=== PATIENT | male | born 1940 | race Caucasian/White ===

== ENCOUNTER 2019-09-22 05:26 | Inpatient (IN) ==
[2019-09-22 06:10] LABS: BASO# 0.03 X1000 (0.0-0.2); BASO% 0.1 % (0.0-0.8); EOS# 0.02 X1000 (0.0-0.7); EOS% 0.1 % (0.0-10.0); HEMATOCRIT 41.6 % (42.0-52.0); HEMOGLOBIN 13.4 g/dL (14.0-18.0); IMM GRAN# 0.15 X1000 (0.0-0.04); IMM GRAN% 0.7 % (0.0-0.5); LYMPH# 0.91 X1000 (1.2-3.4); LYMPH% 4.1 % (20.5-51.1); MCH 30.2 PG (27-31); MCHC 32.2 g/dL (33-37); MCV 93.9 FL (81-99); MONO# 1.29 X1000 (0.11-0.59); MONO% 5.8 % (1.7-9.3); MPV 8.8 FL (7.4-10.4); NEUT% 89.2 % (42.2-75.2); PLT 277 X1000 (130-400); RBC 4.43 XMIL (4.7-6.1); RDW 19.2 % (11.5-14.5)
--- NOTE | 2019-09-22 06:20 | Diag Imaging Result Doc PS360 ---
CT HEAD W/O CONTRAST - 09/22/2019 INDICATION: ams COMPARISON: Brain MRI 08/20/2017 FINDINGS: There is a stable large old infarction at the posterior right cerebral hemisphere. Stable moderately extensive periventricular white matter chronic microvascular ischemia. No intracranial mass or hemorrhage. Stable moderate overall atrophy. The skull is intact. The sinuses, mastoids, and middle ears are clear. IMPRESSION: No acute process. No visible change from prior. This exam was performed using automated exposure control, adjustment of mA or kV according to patient size, and/or use of iterative reconstruction technique Electronically signed by Loco Morales 09/22/2019 6:17 AM
[2019-09-22 06:32] LABS: AGAP 14; ALB/GLOB RATIO 0.9; ALKALINE PHOSPHATASE 71 U/L (32-122); BUN 15 mg/dL (8-22); CALCIUM 8.1 mg/dL (8.8-10.2); CHLORIDE 100 mmol/L (98-107); COSMO 281; ESTIMATED GFR > 60; GLUCOSE 108 mg/dL (70-104); GOT 15 U/L (10-34); GPT 19 U/L (10-44); POTASSIUM 4.5 mmol/L (3.5-5.1); SODIUM 140 mmol/L (136-145); TCO2 26 mmol/L (25-35); TOTAL BILIRUBIN 1.26 mg/dL (0.20-1.00); TOTAL PROTEIN 6.2 g/dL (6.3-8.3)
--- NOTE | 2019-09-22 06:34 | Diag Imaging Result Doc PS360 ---
CHEST-1 VIEW - 09/22/2019 INDICATION: cough COMPARISON: 02/25/2018 FINDINGS: Lung volumes are much lower. There is moderate focal infiltrate at the right upper lobe. There is cardiomegaly. No edema. No pneumothorax or pleural effusion. IMPRESSION: Right upper lobe infiltrate compatible with bronchopneumonia. Electronically signed by Loco Morales 09/22/2019 6:31 AM
[2019-09-22 06:52] LABS: INR 2.34; PROTIME 26.2 Seconds (11.0-16.0)
[2019-09-22 06:53] LABS: PTT 43.8 Seconds (22.3-41.8)
[2019-09-22] MEDS ORDERED: ZOSYN 3.375 GM in NS 50 ML IV ONE (06:56)
[2019-09-22 07:05] LABS: MAGNESIUM 1.7 mg/dL (1.5-2.7)
[2019-09-22 07:14] LABS: URINE SOURCE CLEAN CATCH
[2019-09-22 07:21] LABS: BILIRUBIN URINE NEGATIVE (NEGATIVE); BLOOD URINE NEGATIVE (NEGATIVE); COLOR ORANGE; GLUCOSE URINE NEGATIVE (NEGATIVE); KETONE URINE NEGATIVE (NEGATIVE); LEUKOCYTES URINE NEGATIVE (NEGATIVE); NITRITE URINE NEGATIVE (NEGATIVE); PH URINE 7.5; PROTEIN URINE TRACE mg/dL (NEGATIVE); SP GRAVITY URINE 1.026; TURBIDITY URINE CLEAR (CLEAR); UROBILINOGEN URINE 6 mg/dL (NORMAL)
--- NOTE | 2019-09-22 07:27 | EKG Report ---
Test Performed on : 09/22/2019 06:46:18 AM Test Reason : ams Blood Pressure : / mmHG Vent. Rate : 097 BPM Atrial Rate : 091 BPM P-R Int : 000 ms QRS Dur : 080 ms QT Int : 372 ms P-R-T Axes : 000 010 020 degrees QTc Int : 472 ms Atrial fibrillation. Abnormal ECG When compared with ECG of 11-SEP-2015 20:26, Vent. rate has increased BY 45 BPM QT has lengthened Unconfirmed Result
[2019-09-22] MEDS ORDERED: NS 1,000 ML IV ONE ×2 (07:34→16:16)
[2019-09-22 07:37] LABS: UR EPITHELIAL CELLS <10 /HPF (<10); URINE BACTERIA NEGATIVE /HPF; URINE RBC <10 /HPF (<10); URINE WBC <10 /HPF (<10); URINE YEAST NONE SEEN
[2019-09-22 07:38] LABS: URINE CASTS NONE SEEN; URINE CRYSTALS NONE SEEN; URINE SMALL ROUND CELLS NONE SEEN
--- NOTE | 2019-09-22 08:08 | PROVIDER DOCUMENTATION ---
This chart was entered by Sahra Ricardo Scribe, acting as scribe for Arik Chandler MD. HPI-General Adult - General Chief Complaint: Altered Mental Status Stated Complaint: AMS HYPOTENSION Time Seen by Provider: 09/22/19 05:36 Source: EMS Allergies/Adverse Reactions: Patient Allergies Allergy/AdvReac Type Severity Reaction Status Date / Time No Known Allergies Allergy Verified 09/22/19 05:57 Home Medications: Home Medication List Medication Instructions Recorded Confirmed Last Taken Type Levetiracetam [Keppra] 1,000 mg PO BID 09/10/15 09/22/19 09/10/15 08:00 History Acetaminophen 325 mg PO Q4HR PRN 09/22/19 09/22/19 Unknown History Bisacodyl [Dulcolax] 10 mg .ROUTE DAILY PRN 09/22/19 09/22/19 Unknown History Cetirizine HCl [Zyrtec] 10 mg PO DAILY 09/22/19 09/22/19 Unknown History Cholecalciferol (Vitamin D3) 2,000 unit PO DAILY 09/22/19 09/22/19 Unknown History [Vitamin D3] Clonidine [Catapres] 0.1 mg PO Q6HR PRN 09/22/19 09/22/19 Unknown History Fluoxetine [Prozac] 10 mg PO DAILY 09/22/19 09/22/19 Unknown History Furosemide [Lasix] 40 mg PO DAILY 09/22/19 09/22/19 Unknown History Gabapentin [Neurontin] 300 mg PO BID 09/22/19 09/22/19 Unknown History Guaifenesin [Adult Tussin Chest 5 ml PO Q4H PRN PRN 09/22/19 09/22/19 Unknown History Congestion] Hydrocodone/Acetaminophen 1 tab PO Q4H PRN PRN 09/22/19 09/22/19 Unknown History [Hydrocodone-Acetamin 5-325 mg] Loperamide [Imodium] 2 mg PO Q8H PRN PRN 09/22/19 09/22/19 Unknown History Lorazepam [Ativan] 0.5 mg PO QPM 09/22/19 09/22/19 Unknown History Potassium Chloride 20 meq PO BID 09/22/19 09/22/19 Unknown History Prednisone 20 mg PO DAILY 09/22/19 09/22/19 Unknown History Warfarin [Coumadin] 3.5 mg PO QPM 09/22/19 09/22/19 Unknown History - History of Present Illness -Gen Adult Nature of Presenting Problems: 79yom presents to ED by EMS from [facility] cc F/C/AMS/Hypotension according to EMS. Pt is nontoxic A&Ox3 upon exam. Pt has hx of Afib and prostate cancer. Location of Pain/Injury: reports: generalized Quality of Pain: reports: aching Severity: reports: mild Onset/Duration: reports: this morning Timing: reports: still present Context/Activities at Onset: reports: light activity Modifying Factors: improves with: nothing Associated Symptoms: reports: fever/chills Similar Symptoms Previously?: No Recently seen or treated by another doctor?: No Review of Systems - Adult - REVIEW OF SYSTEMS - ADULT ROS:: ROS per EMS Constitutional: reports: see HPI, chills, fever. denies: fatique Eyes: reports: no symptoms reported Ears, Nose, Mouth & Throat: reports: no symptoms reported Cardiovascular: reports: see HPI, other (hypotension) Respiratory: reports: see HPI. denies: cough, shortness of breath Gastrointestinal: reports: see HPI. denies: diarrhea, nausea, vomiting Genitourinary: reports: no symptoms reported Musculoskeletal: reports: no symptoms reported Integumentary: reports: no symptoms reported Neurological: reports: see HPI, other (AMS) Psychiatric: reports: no symptoms reported Endocrine: reports: no symptoms reported Hematologic/Lymphatic: reports: no symptoms reported Allergic/Immunologic: reports: no symptoms reported All Other Systems: Reviewed and Negative Past History - Adult - PAST MEDICAL HISTORY-ADULT Review of Records: reports: Old Records Reviewed, Nursing Assessment Review, Medications Reviewed, Social history reviewed & non-contributory. Major Childhood Illnesses: reports: denies history Cardiovascular: reports: A-Fib, blood clots Respiratory: reports: denies history Gastrointestinal: reports: denies history Obstetrical/Gynecological: reports: denies history Genitourinary: reports: denies history Musculoskeletal: reports: cancer (prostate) Neurological: reports: denies history Endocrine/Immune: reports: denies history Other Conditions: reports: denies history - IMMUNIZATION STATUS Childhood Immunizations: See Nurse Assessment Flu Vaccine: See Nurse Assessment - FAMILY HISTORY Family History: reviewed, not pertinent Physical Exam-General - PHYSICAL EXAM-ADULT Initial Vital Signs Reviewed: Yes - CONSTITUTIONAL General Appearance: appears well, alert, no apparent distress. negative: anxious, combative - EYES Eyes: PERRL/EOMI, pink conjunctivae. negative: photophobia - HEAD, EARS, NOSE, MOUTH & THROAT HENMT: normocephalic/atraumatic, moist mucous membranes. negative: angioedema - NECK Neck: supple, normal inspection - RESPIRATORY Respiratory: chest non-tender, lungs clear, normal breath sounds. negative: rhonchi - CARDIOVASCULAR Cardiovascular: normal peripheral pulses, no edema, tachycardia. negative: bradycardia - GASTROINTESTINAL (ABDOMEN) Abdominal Exam: normal bowel sounds, non tender, soft. negative: rebound - LYMPHATIC Lymphatic: no adenopathy. negative: enlargement - MUSCULOSKELETAL Back Exam: normal inspection, no CVA tenderness, no vertebral tenderness Extremity: normal inspection, normal capillary refill. negative: deformity - SKIN Integumentary: normal color. negative: diaphoresis, jaundice, rash - NEUROLOGIC Neurologic: head of academic technology II-XII nml as tested, grossly normal, no motor/sensory deficits - PSYCHIATRIC Psych/Mental Status: normal mood/affect, oriented x 3. negative: anxious, disheveled Progress - PLAN OF CARE/RESULTS Progress/Plan/Lab Results: Vital Signs - 8 hr 09/22/19 05:26 Temperature 98.1 F Pulse Rate 100 H Respiratory Rate 20 Blood Pressure 106/58 O2 Sat by Pulse Oximetry 94 L 09/22/19 05:45 Influenza Screen - Final Nasopharyngeal Laboratory Results - last 24 hr 09/22/19 09/22/19 09/22/19 05:45 05:45 05:45 WBC 22.10 H RBC 4.43 L Hgb 13.4 L Hct 41.6 L MCV 93.9 MCH 30.2 MCHC 32.2 L RDW Std Deviation 19.2 H Plt Count 277 MPV 8.8 Immature Gran % (Auto) 0.7 H Neut % (Auto) 89.2 H Lymph % (Auto) 4.1 L Garrett % (Auto) 5.8 Eos % (Auto) 0.1 Baso % (Auto) 0.1 Immature Gran # (Auto) 0.15 H Neut # (Auto) 19.70 H Lymph # (Auto) 0.91 L Garrett # (Auto) 1.29 H Eos # (Auto) 0.02 Baso # (Auto) 0.03 PT INR PTT (Actin FS) Sodium 140 Potassium 4.5 Chloride 100 Carbon Dioxide 26 Anion Gap 14 BUN 15 Creatinine 1.0 Estimated GFR/1.73 m2 > 60 BUN/Creatinine Ratio 15 Glucose 108 H Calculated Osmolality 281 Calcium 8.1 L Magnesium 1.7 Total Bilirubin 1.26 H AST 15 ALT 19 Alkaline Phosphatase 71 Creatine Kinase 51 Troponin T High Sens Total Protein 6.2 L Albumin 3.0 L Globulin 3.2 Albumin/Globulin Ratio 0.9 Plasma Lactate Urine Source 09/22/19 09/22/19 09/22/19 05:45 05:45 05:45 WBC RBC Hgb Hct MCV MCH MCHC RDW Std Deviation Plt Count MPV Immature Gran % (Auto) Neut % (Auto) Lymph % (Auto) Garrett % (Auto) Eos % (Auto) Baso % (Auto) Immature Gran # (Auto) Neut # (Auto) Lymph # (Auto) Garrett # (Auto) Eos # (Auto) Baso # (Auto) PT 26.2 H INR 2.34 PTT (Actin FS) 43.8 H Sodium Potassium Chloride Carbon Dioxide Anion Gap BUN Creatinine Estimated GFR/1.73 m2 BUN/Creatinine Ratio Glucose Calculated Osmolality Calcium Magnesium Total Bilirubin AST ALT Alkaline Phosphatase Creatine Kinase Troponin T High Sens 40 H Total Protein Albumin Globulin Albumin/Globulin Ratio Plasma Lactate 3.1 H Urine Source 09/22/19 07:06 WBC RBC Hgb Hct MCV MCH MCHC RDW Std Deviation Plt Count MPV Immature Gran % (Auto) Neut % (Auto) Lymph % (Auto) Garrett % (Auto) Eos % (Auto) Baso % (Auto) Immature Gran # (Auto) Neut # (Auto) Lymph # (Auto) Garrett # (Auto) Eos # (Auto) Baso # (Auto) PT INR PTT (Actin FS) Sodium Potassium Chloride Carbon Dioxide Anion Gap BUN Creatinine Estimated GFR/1.73 m2 BUN/Creatinine Ratio Glucose Calculated Osmolality Calcium Magnesium Total Bilirubin AST ALT Alkaline Phosphatase Creatine Kinase Troponin T High Sens Total Protein Albumin Globulin Albumin/Globulin Ratio Plasma Lactate Urine Source CLEAN CATCH Orders Category Date Time Status Notify of + Sepsis Screen NOW Care 09/22/19 06:19 Active CHEST-1 VIEW [RAD] Stat Exams 09/22/19 05:[address] HEAD W/O CONTRAST [CT] Stat Exams 09/22/19 05:41 Completed BLOOD CULTURE [BLDCUL] Stat Lab 09/22/19 05:45 Received CBC WITH ELECTRONIC DIFF [HEME] Stat Lab 09/22/19 05:45 Completed CK PROFILE [SP CHEM] Stat Lab 09/22/19 05:45 Completed COMPREHENSIVE METABOLIC PANEL [CHEM] Stat Lab 09/22/19 05:45 Completed INFLUENZA SCREEN A/B Stat Lab 09/22/19 05:45 Completed LACTATE, PLASMA [CHEM] Lab 09/22/19 09:30 Uncollected LACTATE, PLASMA [CHEM] Lab 09/22/19 12:30 Uncollected LACTATE, PLASMA [CHEM] Q3H Lab 09/22/19 05:45 Completed MAGNESIUM [CHEM] Stat Lab 09/22/19 05:45 Completed PROTIME WITH INR [COAG] Stat Lab 09/22/19 05:45 Completed PTT [COAG] Stat Lab 09/22/19 05:45 Completed TROPONIN T HIGH SENSITIVITY Stat Lab 09/22/19 05:45 Completed URINALYSIS W/POSS RFLX CULT [URINALYSIS] Stat Lab 09/22/19 07:06 Results Piperacillin/Tazobactam [Zosyn] 3.375 gm Med 09/22/19 06:56 Active 0.9% Sodium Chloride Inj [Ns] 50 ml IV NOW EKG [EKG] Stat Ther 09/22/19 05:43 Ordered Result Diagrams: 09/22/19 05:45 09/22/19 05:45 - EKG 1 Time of EKG reading by physician:: 06:46 EKG Read and Signed by:: Arik Chandler EKG Interpretation (*Must complete 3 of following elements*): Abnormal Rate: 97 Rhythm: Afib [place]: normal [place] Interval: normal - XRAY 1 XRAY: Bilateral XRAY Study: Chest Impression: See EMR Report ( IMPRESSION: Right upper lobe infiltrate compatible with bronchopneumonia. Electronically signed by Loco Morales 09/22/2019 6:31 AM) - CT/MRI 1 CT Study: Head Impression: See EMR Report (IMPRESSION: No acute process. No visible change from prior. This exam was performed using automated exposure control, adjustment of mA or kV according to patient size, and/or use of iterative reconstruction technique Electronically signed by Loco Morales 09/22/2019 6:17 AM 09/22/19 0617) - CONSULTS/PCP/HOSPITALIST Notification #1 *Consult/PCP/Hospitalist*: [facility] Time Discussed: 08:05 Consult Disposition: Admit (to [facility]) Departure - Departure Date of Disposition Decision: 09/22/19 Time of Disposition Decision: 08:05 DIAGNOSIS: Sepsis Pneumonia Qualifiers: Pneumonia type: due to unspecified organism Disposition: ADMITTED INPATIENT 09 Certified Medical Emergency: Emergent Condition: Fair Additional Instructions: ED Follow Up Instructions: You have been treated by a care provider in the Emergency Department. These instructions are being provided to you so you can have an understanding of how to care for yourself upon discharge. Upon discharge from the Emergency Department, you are responsible for making arrangements for follow-up care by a physician of your choice. Take all prescribed medications as directed. Return to the Emergency Department immediately for any new or worsening symptoms. You may call the Physician Referral phone number at [phone] to obtain a list of Physicians who are taking new patients. Referrals and Follow-Ups: Jamari Dumont [Primary Care Provider] - - Critical Care Note This patient required my direct & personal management of CC.: No Attestation - Physician/ ELIZA Attestation Patient care was provided by Advanced Practice Provider:: No The physician spent face to face time with patient:: Yes Advanced Practice Provider documentation review:: Supervising physician onsite and consulted in the evaluation and care of this patient. The physician did have a face to face encounter with the patient. Sepsis: Tissue Perfusion Assmt - Physical Exam Assessment Date: 09/22/19 Time Assessment Initialized: 08:07 Vital Signs: Last Vital Signs Temp 98.2 F 09/22/19 07:27 Pulse 98 H 09/22/19 07:27 Resp 17 09/22/19 07:27 BP 123/65 09/22/19 07:27 Pulse Ox 94 L 09/22/19 07:27 Height 6 ft 3 in Weight 104.326 kg 09/22/19 08:07 see chart Lung Sounds:: lungs clear Heart Sounds:: Regular Capillary Refill Time: Less Than 2 Seconds Peripheral Pulse Evaluation:: radial (R): 4+, radial (L): 4+, dorsalis-pedis (R): 4+, dorsalis-pedis (L): 4+ Skin Exam:: flushed - Impression Impression:: Tissue Perfusion Adequate - Plan Plan:: See Orders This chart was documented by the indicated scribe, (Sahra Ricardo, Scribe) and accurately reflects the services I performed and decisions made by me, Arik Chandler MD, as attested by the provider's signature.
[2019-09-22] MEDS ORDERED: DULCOLAX PR PRN (09:01)
[2019-09-22] MEDS ORDERED: ROBITUSSIN PO PRN (09:01)
[2019-09-22] MEDS ORDERED: ZOFRAN IV PRN (09:01)
[2019-09-22] MEDS: NS 1,000 ML IV SCH (09:28)
[2019-09-22] MEDS: NEURONTIN PO SCH ×2 (09:30→23:07)
[2019-09-22] MEDS: ZYRTEC PO SCH (09:30)
[2019-09-22] MEDS: KLOR-CON PO SCH ×2 (09:30→23:07)
[2019-09-22] MEDS: KEPPRA PO SCH ×2 (09:31→23:07)
[2019-09-22] MEDS: LASIX PO SCH (09:32)
[2019-09-22] MEDS: PREDNISONE PO SCH (09:32)
--- NOTE | 2019-09-22 10:13 | HISTORY AND PHYSICAL ---
PRIMARY CARE PHYSICIAN: Dr. Jamari Dumont. CHIEF COMPLAINT: Per skilled nursing staff, the patient was having altered mental status, a low blood pressure this morning after having a high blood pressure of a systolic in the 200s last night requiring a clonidine 0.1 mg. Also reports a subjective fever, chills, and cough that began yesterday. HISTORY OF PRESENTING ILLNESS: This is a 79-year-old male who presents to [facility] via EMS from [facility] after staff reported he was having some altered mental status and low blood pressure. He reportedly had a high blood pressure last night with a systolic in the 200s and was given a clonidine 0.1 mg p.o. x1. He has also noted some subjective fever, chills, and a productive cough. When he arrived to our facility, his blood pressure was 106/58, his temperature was 98.1 degrees. He was saturating 94% on room air. Laboratory data did show a white blood cell count of 22.10. His chest x-ray showed a right upper lobe infiltrate compatible with a bronchopneumonia so he will be admitted for further evaluation and treatment. 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 PAST SURGICAL HISTORY: Prostatectomy. FAMILY HISTORY: Reviewed and noncontributory. SOCIAL HISTORY: Currently lives [facility]. Denies any tobacco, alcohol or illicit drug use. ALLERGIES: He has no known drug allergies. HOME MEDICATIONS: He takes acetaminophen 325 mg p.o. q.4 hours p.r.n. will be held, Dulcolax 10 mg per rectum daily p.r.n., cetirizine 10 mg p.o. daily, vitamin D3 2000 units p.o. daily, clonidine 0.1 mg p.o. q.6 hours p.r.n., fluoxetine 10 mg p.o. daily, furosemide 40 mg p.o. daily, gabapentin 300 mg p.o. b.i.d., adult Tussin chest congestion 5 mL p.o. q.4 hours p.r.n., hydrocodone 5 one p.o. q.4 hours p.r.n., Keppra 1000 mg p.o. b.i.d., loperamide 2 mg p.o. q.8 hours p.r.n., Ativan 0.5 mg p.o. q.p.m., potassium 20 mEq p.o. b.i.d., prednisone 20 mg p.o. daily, and Coumadin 3.5 mg p.o. q.p.m. LABORATORY DATA: Showed a white blood cell count of 22.10, hemoglobin 13.4, hematocrit 41.6, platelets 277,000. PT and INR of 26.2 and 2.34. Sodium 140, potassium 4.5, chloride 100, CO2 26, BUN of 15, creatinine 1, glucose 108, magnesium 1.7. Cardiac enzymes were negative. Plasma lactate was 3.1. Urinalysis was negative. Chest x-ray showed a right upper lobe infiltrate compatible with bronchopneumonia. Head CT showed no acute process. No visible change from prior. EKG showed atrial fibrillation at 97. REVIEW OF SYSTEMS: He had a subjective fever, chills, productive cough, low blood pressure at facility that was high last night, altered mental status. Denies any abdominal pain, nausea, vomiting, constipation, diarrhea, burning or hurting with urination. PHYSICAL EXAMINATION: On arrival he had a temperature of 98.1 degrees, pulse 100, respirations 20, blood pressure 106/58, saturating 94% on room air. GENERAL: This is a 79-year-old male who is sitting up in the bed. Able to answer most questions appropriately. is also at the bedside and reviewed medical records. HEENT: Normocephalic, atraumatic. Normal ENT inspection. Oropharynx and nares are clear. EYES: Pupils are equal, round, reactive to light and accommodation. Extraocular movements are intact. NECK: Normal inspection, normal range of motion. LUNGS: Clear to auscultation bilaterally with equal lung expansion and chest wall movement. HEART: Regular rate and rhythm. No murmurs, rubs, or gallops. ABDOMEN: Soft, nontender, nondistended. Bowel sounds are present x4 quadrants. MUSCULOSKELETAL: He has 3/5 strength x4 extremities. NEUROLOGICAL: The cranial nerves 2-12 appear grossly intact. ASSESSMENT: 1. Right upper lobe bronchopneumonia, healthcare acquired. 2. Leukocytosis. 3. Atrial fibrillation, history of. 4. Seizures, history of. PLAN: He will be admitted to the medical unit at [facility] placed on telemetry O2 per protocol healthy heart diet with chopped meats and nectar thickened liquids. Place him on Zosyn 3.375 g IV q.6, Duo Nebs q.4 hours, normal saline at 75 mL an hour. We will continue his home medications as previously identified. We will continue his serial lactate. I do not feel that he is septic at this time. We will check vital signs q.4 hours. Recheck PT/INR, CBC, BMP in the a.m. Further orders after seen by attending. Dictated by MATTHEW Ballard for Shola Petersen MD cc: MATTHEW Ballard MD Chad McElroy, MD
[2019-09-22] MEDS: VITAMIN D PO SCH (10:31)
[2019-09-22] MEDS: PROZAC PO SCH (10:31)
[2019-09-22] MEDS: TYLENOL PO PRN (13:49)
[2019-09-22] MEDS: DUONEB (A & A) INH SCH ×5 (14:30→22:25)
[2019-09-22] MEDS: NORCO-5 PO PRN (15:56)
[2019-09-22] MEDS: IMODIUM PO PRN (15:56)
[2019-09-22] MEDS: ZOSYN 3.375 GM in NS 50 ML IV SCH ×3 (15:57→18:12)
--- NOTE | 2019-09-22 20:26 | HISTORY AND PHYSICAL ---
ADDENDUM: The patient is seen and examined by me [id number]. All the laboratory, vital signs and images were reviewed. The patient seems to be confused. He knows his name. He knows he is in a penitentiary. He knows he is in the hospital. He does not remember which one. He is not oriented to time. I do not have any family members at the bedside. Apparently, he was hypertensive last night and today he was hypotensive. His white blood cell count is 22,000 and his plasma lactate is 3.1 and then 2.6. He does have a source of infection. He is slightly tachycardic. He is not tachypneic. X-ray showed right upper lobe pneumonia. He already received a bolus in the emergency department of fluid and he has been placed on normal saline. He seems to be stable. He meets sepsis criteria. I will continue IV fluids, but I will give him an extra bolus and I will hold for now his Lasix and we will re-evaluate tomorrow. I will continue with the rest of his medications that he has been taking at home. I agree with the rest of the nurse practitioner's assessment and plan. I will continue with antibiotics. I will hold the Lasix and I will give him an extra bolus of fluid. cc: Shola Petersen MD
[2019-09-22] MEDS: COUMADIN PO SCH ×2 (23:07)
[2019-09-22] MEDS: ATIVAN PO SCH (23:08)
[2019-09-23] MEDS: ZOSYN 3.375 GM in NS 50 ML IV SCH ×4 (01:38→20:56)
[2019-09-23] MEDS: NS 1,000 ML IV SCH ×2 (03:38→15:09)
[2019-09-23] MEDS: DUONEB (A & A) INH SCH ×6 (03:42→22:45)
[2019-09-23 08:42] LABS: BASO# 0.02 X1000 (0.0-0.2); BASO% 0.2 % (0.0-0.8); EOS# 0.05 X1000 (0.0-0.7); EOS% 0.5 % (0.0-10.0); HEMATOCRIT 37.8 % (42.0-52.0); HEMOGLOBIN 11.6 g/dL (14.0-18.0); LYMPH# 0.92 X1000 (1.2-3.4); LYMPH% 9.4 % (20.5-51.1); MCH 29.4 PG (27-31); MCHC 30.7 g/dL (33-37); MCV 95.9 FL (81-99); MONO# 0.68 X1000 (0.11-0.59); MPV 8.7 FL (7.4-10.4); NEUT# 7.97 X1000 (1.4-6.5); NEUT% 81.9 % (42.2-75.2); PLT 222 X1000 (130-400); RBC 3.94 XMIL (4.7-6.1); RDW 18.9 % (11.5-14.5); WBC 9.74 X1000 (4.8-10.8)
[2019-09-23 08:50] LABS: INR 2.01; PROTIME 23.3 Seconds (11.0-16.0)
[2019-09-23] MEDS: NEURONTIN PO SCH ×2 (09:17→20:55)
[2019-09-23] MEDS: PROZAC PO SCH (09:17)
[2019-09-23] MEDS: ZYRTEC PO SCH (09:18)
[2019-09-23] MEDS: VITAMIN D PO SCH (09:18)
[2019-09-23] MEDS: NORCO-5 PO PRN ×3 (09:18→20:55)
[2019-09-23] MEDS: KEPPRA PO SCH ×2 (09:18→20:55)
[2019-09-23] MEDS: PREDNISONE PO SCH (09:18)
[2019-09-23] MEDS: KLOR-CON PO SCH ×2 (09:18→20:56)
[2019-09-23 09:45] LABS: AGAP 11; BUN 17 mg/dL (8-22); CALCIUM 8.3 mg/dL (8.8-10.2); CHLORIDE 104 mmol/L (98-107); COSMO 281; ESTIMATED GFR > 60; GLUCOSE 93 mg/dL (70-104); POTASSIUM 4.1 mmol/L (3.5-5.1); SODIUM 140 mmol/L (136-145); TCO2 25 mmol/L (25-35)
--- NOTE | 2019-09-23 14:40 | PROGRESS NOTE ---
DATE: 09/23/2019 PRIMARY CARE PHYSICIAN: Jamari Dumont MD SUBJECTIVE: Mr. Herrera was admitted on 09/22/2019. Per prison staff the patient had altered mental status, low blood pressure. After eating, his systolic blood pressure was in the 200s the night before requiring clonidine. Subjective fever, chills, cough, which began the day before. This 79-year-old male presented to [facility] via EMS from [facility] after staff reported having altered mental status and low blood pressure. He reportedly had high blood pressure the night before systolic 200s, was given clonidine 0.1 mg p.o. x1. He has noted some subjective fever, chills, and productive cough. When he arrived to the hospital, his blood pressure was 106/58, temp was 98.1 degrees, saturations 94% on room air. Lab data showed white blood cell count [address]. X-ray showed a right upper lobe infiltrate compatible with bronchopneumonia, so admitted for treatment. PAST MEDICAL HISTORY: Atrial fib, history of prostate cancer, history of blood clots, history of CVA x4 and residual hemiplegia, dysphagia, seizures, anxiety and depression. PAST SURGICAL HISTORY: Prostatectomy. ADMISSION DIAGNOSES: Right upper lobe bronchopneumonia, healthcare acquired leukocytosis, atrial fibrillation, and history of seizures. OBJECTIVE: General: He states he is feeling better, breathing better. He is pretty weak. Knows he needs to continue some physical therapy. Vital Signs: Temperature is 97.5 degrees, pulse 58, respirations 18, blood pressure 118/71. HEENT: Pupils are equal and round. Lungs: Clear in all lung matias. Cardiovascular: Regular rate without murmur or S3. LABORATORY DATA: White count 9740, hematocrit is 37, platelet count 222,000 sodium 140, potassium 4.1, chloride 104, BUN is 17, creatinine 1.0, ProTime on arrival was 26 with an INR of 2.34. Checked this morning. ProTime is 23 and INR of 2.01. ASSESSMENT AND PLAN: 1. Right upper lobe bronchopneumonia, healthcare acquired. Continue present antibiotics and supplementary O2. 2. Leukocytosis secondary to bronchopneumonia. 3. Atrial fibrillation, rate is controlled. 4. History of seizures. PRESENT MEDICATION: He is on Catapres 0.1 mg q.6 hours p.r.n. elevated blood pressure. He is on Zyrtec 10 mg a day, vitamin D3 2000 units daily, Prozac 10 mg a day, Neurontin 300 mg p.o. b.i.d., Keppra 1000 mg p.o. b.i.d., normal saline, getting 75 mL an hour, potassium chloride extended release 20 mEq b.i.d., prednisone 20 mg a day, Coumadin 3.5 mg q.p.m., he is on Zosyn 3.375 g IV q.6 hours. He gets Lasix 40 mg p.o. daily. His lab from this morning, white count is down to 9740 hematocrit is 37, platelet count 222,000. Sodium 140, potassium 4.1, chloride 104, BUN 17, creatinine 1.0. cc: Ham Isaac MD
[2019-09-23] MEDS ORDERED: SEROQUEL XR PO ONE (16:30)
[2019-09-23] MEDS: COUMADIN PO SCH ×2 (20:55→20:56)
[2019-09-23] MEDS: ATIVAN PO SCH (20:56)
[2019-09-24] MEDS: DUONEB (A & A) INH SCH ×6 (03:49→22:49)
[2019-09-24] MEDS: ZOSYN 3.375 GM in NS 50 ML IV SCH ×4 (03:53→22:32)
[2019-09-24] MEDS: NS 1,000 ML IV SCH ×2 (04:35→15:49)
[2019-09-24] MEDS: NORCO-5 PO PRN ×2 (06:10→15:47)
[2019-09-24 08:39] LABS: INR 2.15; PROTIME 24.6 Seconds (11.0-16.0)
--- NOTE | 2019-09-24 09:39 | PROGRESS NOTE ---
DATE: 09/24/2019 SUBJECTIVE: Mr. Herrera had a pretty rough night. He did pretty good until midnight and started getting more restless and agitated and did not know where he was and I think agitated, wanted to try and get out of the bed. OBJECTIVE: Vital signs: Temperature 98 degrees, pulse 75, respirations 18, blood pressure 145/86. Eyes: Pupils are equal and round. Lungs: Clear in all lung matias. Cardiovascular exam: Regular rhythm and rate without murmur or S3. Abdomen: Soft. Skin: Warm and dry. Urine output was 2100 mL. ASSESSMENT AND PLAN: 1. Right upper lobe bronchopneumonia, healthcare acquired. Continue present antibiotics, supplemental oxygen. 2. Leukocytosis secondary bronchopneumonia. 3. Atrial fibrillation. Rate is controlled. 4. History of seizures. 5. He is having some delirium I think related to his gas exchange and we gave him some Seroquel. I am going to go up on the Seroquel, will give him 100 mg and we will try and give it about 7 o'clock tonight. cc: Ham Isaac MD
[2019-09-24] MEDS: VITAMIN D PO SCH (10:21)
[2019-09-24] MEDS: PROZAC PO SCH (10:25)
[2019-09-24 10:26] LABS: BASO# 0.05 X1000 (0.0-0.2); BASO% 0.5 % (0.0-0.8); EOS% 1.1 % (0.0-10.0); HEMATOCRIT 41.2 % (42.0-52.0); HEMOGLOBIN 12.9 g/dL (14.0-18.0); IMM GRAN# 0.15 X1000 (0.0-0.04); IMM GRAN% 1.6 % (0.0-0.5); LYMPH# 1.15 X1000 (1.2-3.4); LYMPH% 12.1 % (20.5-51.1); MCH 30.1 PG (27-31); MCHC 31.3 g/dL (33-37); MCV 96.3 FL (81-99); MONO# 0.49 X1000 (0.11-0.59); MONO% 5.2 % (1.7-9.3); MPV 8.6 FL (7.4-10.4); NEUT# 7.56 X1000 (1.4-6.5); NEUT% 79.5 % (42.2-75.2); PLT 234 X1000 (130-400); RBC 4.28 XMIL (4.7-6.1); RDW 19.2 % (11.5-14.5)
[2019-09-24] MEDS: KEPPRA PO SCH ×2 (10:26→22:31)
[2019-09-24] MEDS: LASIX PO SCH (10:26)
[2019-09-24] MEDS: PREDNISONE PO SCH (10:26)
[2019-09-24] MEDS: NEURONTIN PO SCH ×2 (10:26→22:29)
[2019-09-24] MEDS: KLOR-CON PO SCH ×2 (10:26→22:29)
[2019-09-24] MEDS: ZYRTEC PO SCH (10:27)
--- NOTE | 2019-09-24 10:40 | Diag Imaging Result Doc PS360 ---
EXAM: CHEST-PORTABLE 09/24/2019 HISTORY: pneumonia TECHNIQUE: AP portable upright at 1002 COMMENT: There is platelike atelectasis over the right base which is slightly worse than on 09/22/2019. The opacity in the right upper lobe has improved. IMPRESSION: Worsened atelectasis right lower lobe. Improved left upper lobe pneumonia. Electronically signed by Harley Mae 09/24/2019 10:38 AM
[2019-09-24 10:41] LABS: AGAP 11; BUN 17 mg/dL (8-22); CALCIUM 8.2 mg/dL (8.8-10.2); CHLORIDE 100 mmol/L (98-107); COSMO 276; ESTIMATED GFR > 60; GLUCOSE 113 mg/dL (70-104); POTASSIUM 3.7 mmol/L (3.5-5.1); SODIUM 137 mmol/L (136-145); TCO2 26 mmol/L (25-35)
[2019-09-24] MEDS: ATIVAN PO SCH (22:29)
[2019-09-24] MEDS: SEROQUEL PO SCH (22:30)
[2019-09-24] MEDS: COUMADIN PO SCH ×2 (22:30→22:31)
[2019-09-25] MEDS: ZOSYN 3.375 GM in NS 50 ML IV SCH ×4 (02:52→20:19)
[2019-09-25] MEDS: DUONEB (A & A) INH SCH ×6 (03:07→23:23)
[2019-09-25] MEDS: NS 1,000 ML IV SCH ×2 (06:26→20:19)
[2019-09-25 08:12] LABS: INR 2.44; PROTIME 27.1 Seconds (11.0-16.0)
[2019-09-25 08:40] LABS: AGAP 10; BUN 13 mg/dL (8-22); CALCIUM 8.1 mg/dL (8.8-10.2); CHLORIDE 105 mmol/L (98-107); COSMO 279; CREATININE 1.1 mg/dL (0.7-1.2); ESTIMATED GFR > 60; GLUCOSE 82 mg/dL (70-104); POTASSIUM 3.9 mmol/L (3.5-5.1); SODIUM 140 mmol/L (136-145); TCO2 25 mmol/L (25-35)
[2019-09-25] MEDS: KEPPRA PO SCH ×2 (09:08→20:19)
[2019-09-25] MEDS: LASIX PO SCH (09:08)
[2019-09-25] MEDS: VITAMIN D PO SCH (09:09)
[2019-09-25] MEDS: PREDNISONE PO SCH (09:09)
[2019-09-25] MEDS: KLOR-CON PO SCH ×2 (09:09→20:19)
[2019-09-25] MEDS: CATAPRES PO PRN (09:15)
--- NOTE | 2019-09-25 09:21 | PROGRESS NOTE ---
DATE: 09/25/2019 SUBJECTIVE: He had a little better night. There was confusion still, but he is in a private room. He appeared comfortable, ready, eats his breakfast. He was breathing comfortably. OBJECTIVE: Vital Signs: Temperature 97.8 degrees, pulse 88, respirations 19, blood pressure 188/97. Last several blood pressures 122/63, 150/77, 158/81, 88/97. Eyes: Pupils are equal and round. Lungs: Clear in all lung matias anterolateral. Cardiovascular exam: Regular rhythm and rate without murmur or S3. Abdomen: Soft. Extremities: No pedal edema. : His urine output was 2400 mL. X-RAYS: Chest x-ray from yesterday: Worsened atelectasis, right lower lobe, improved. Right upper lobe pneumonia. 1. Right upper lobe bronchopneumonia and some atelectasis. He appears to be clinically improving. Continue supplementary oxygen and bronchodilators. 2. Leukocytosis secondary to bronchopneumonia. 3. Atrial fibrillation, rate is controlled. 4. History of seizures. 5. He has had some delirium and confusion. I put him on some Seroquel at night, which I believe is helping him. REVIEW OF HIS MEDICATION: 1. He is on Seroquel 100 mg at bedtime. 2. He gets Catapres 0.1 mg q. 6 hours p.r.n. 3. Zyrtec 10 mg daily, which I am going to stop. 4. Vitamin D 3 2000 units p.o. daily. 5. Prozac 10 mg a day. 6. Lasix 40 mg a day. 7. He takes Neurontin 300 mg p.o. b.i.d. 8. Hydrocodone 1 tablet p.o. q. 4 hours. 9. He is on Keppra 1000 mg p.o. b.i.d. 10. Ativan 0.5 mg q.p.m. 11. Normal saline at 75 mL an hour. 12. He is on prednisone 20 mg a day. 13. Potassium chloride 20 mEq b.i.d. 14. Coumadin 3.5 mg total q.p.m. 15. He is on Zosyn 3.375 g daily. 16. I am going to decrease his Neurontin. 17. We will stop his Prozac and I am going to stop his Ativan at night to see if that will help his confusion. I will review his pro time; it is at 27, so I am going to decrease his Coumadin down to just 2.5 mg p.o. q.p.m. cc: Ham Isaac MD
[2019-09-25] MEDS: IMODIUM PO PRN (14:51)
[2019-09-25] MEDS: TYLENOL PO PRN (16:49)
[2019-09-25] MEDS: SEROQUEL PO SCH (20:19)
[2019-09-25] MEDS: COUMADIN PO SCH (20:19)
[2019-09-26] MEDS: ZOSYN 3.375 GM in NS 50 ML IV SCH ×4 (03:13→20:31)
[2019-09-26] MEDS: DUONEB (A & A) INH SCH ×6 (03:45→23:07)
[2019-09-26] MEDS: NORCO-5 PO PRN (03:59)
[2019-09-26] MEDS: LASIX PO SCH (08:50)
[2019-09-26] MEDS: PREDNISONE PO SCH (08:50)
[2019-09-26] MEDS: KEPPRA PO SCH ×2 (08:50→20:33)
[2019-09-26] MEDS: VITAMIN D PO SCH (08:50)
[2019-09-26] MEDS: KLOR-CON PO SCH ×2 (08:50→20:33)
[2019-09-26] MEDS: NS 1,000 ML IV SCH ×3 (10:49→20:32)
--- NOTE | 2019-09-26 12:05 | PROGRESS NOTE ---
DATE: 09/26/2019 SUBJECTIVE: Mr. Herrera is awake and alert. He remember some events from yesterday apparently sleeping better. He is supposed to have said he usually takes some thickener with his liquid. OBJECTIVE: Vital Signs: Temperature is 98.3 degrees. He has remained afebrile, pulse 90, respirations 18, blood pressure 153/84. HEENT: Pupils are equal and round. Lungs: Clear in all lung matias. Cardiovascular: Regular rate without murmur or S3. Abdomen: Soft. Skin: Warm and dry. ASSESSMENT AND PLAN: 1. Right upper lobe bronchopneumonia with some atelectasis. Appears clinically to be improving. He is off his oxygen at this point. 2. Leukocytosis secondary to bronchopneumonia, which is resolved. 3. Atrial fibrillation, rate is controlled. 4. History of seizures. He is on Keppra. 5. He has had some delirium and confusion while he was in the hospital. I have given him some Seroquel. 6. Review of his orders: He is on Seroquel 100 mg at bedtime, Catapres 0.1 mg q.6 hours p.r.n., Dulcolax 10 mg per rectum daily p.r.n., Lasix 40 mg a day, guaifenesin 100 mg p.o. q.4 hours p.r.n., Keppra 1000 mg p.o. b.i.d. He is on normal saline at 75 mL an hour, prednisone 20 mg a day, and he gets Coumadin which we cut down to 2.5 mg q.p.m. He is getting Zosyn 3.375 g daily. 7. White count has come down to 9500. Electrolytes, his kidney function looks good. Sodium 140, potassium 3.9, chloride 105. BUN is 13, creatinine 1.1 8. He has physical therapy ordered. I will get occupational therapy as well and see if we can add a thickener to his drinks. He is on a healthy heart diet. Seems to be making good progress. Hopefully can go home on Sunday. cc: Ham Isaac MD
--- NOTE | 2019-09-26 12:20 | Diag Imaging Result Doc PS360 ---
EXAM: CHEST-PORTABLE HISTORY: pneumonia TECHNIQUE: Single view COMPARISON: 09/24/2019 FINDINGS: The lungs are well expanded except for basilar atelectasis. The heart is not enlarged. The vessels are distended. There are no infiltrates. No effusion identified. IMPRESSION: Cardiomegaly with basilar atelectasis Electronically signed by Suoth Peterson 09/26/2019 12:17 PM
[2019-09-26] MEDS: COUMADIN PO SCH (20:32)
[2019-09-26] MEDS: SEROQUEL PO SCH (20:34)
[2019-09-27] MEDS: DUONEB (A & A) INH SCH ×6 (03:01→23:35)
[2019-09-27] MEDS: ZOSYN 3.375 GM in NS 50 ML IV SCH ×4 (04:20→22:35)
[2019-09-27 07:14] LABS: INR 2.32; PROTIME 26.1 Seconds (11.0-16.0)
[2019-09-27 07:48] LABS: AGAP 9; BUN 13 mg/dL (8-22); CALCIUM 9.1 mg/dL (8.8-10.2); CHLORIDE 107 mmol/L (98-107); COSMO 288; CREATININE 1.1 mg/dL (0.7-1.2); ESTIMATED GFR > 60; GLUCOSE 87 mg/dL (70-104); MAGNESIUM 2.5 mg/dL (1.5-2.7); POTASSIUM 4.5 mmol/L (3.5-5.1); SODIUM 145 mmol/L (136-145); TCO2 29 mmol/L (25-35)
[2019-09-27] MEDS: KLOR-CON PO SCH ×2 (10:22→22:36)
[2019-09-27] MEDS: KEPPRA PO SCH ×2 (10:22→22:35)
[2019-09-27] MEDS: PREDNISONE PO SCH (10:23)
[2019-09-27] MEDS: LASIX PO SCH (10:23)
[2019-09-27] MEDS: NS 1,000 ML IV SCH ×2 (10:24→22:36)
[2019-09-27] MEDS: VITAMIN D PO SCH (10:24)
--- NOTE | 2019-09-27 10:38 | PROGRESS NOTE ---
DATE: 09/27/2019 SUBJECTIVE: Ms. Herrera was there at the bedside. He is better. He did not sleep real well last night, but he had less confusion. He is awake and alert and oriented. He said he is swallowing fine and eating well. His bowels are moving. Appears to be breathing comfortably. He did have a 12 beat run of ventricular tachycardia yesterday, asymptomatic. OBJECTIVE: Vital Signs: Temperature 98.8 degrees, pulse 65, respirations 17, blood pressure 155/88. Eyes: Pupils are equal and round. Lungs: Clear in all lung matias. Cardiovascular exam: Regular rhythm and rate without murmur or S3. Abdomen: Abdomen is soft. Skin: Skin is warm and dry. X-RAYS: Chest x-ray showed cardiomegaly and bibasilar atelectasis. ASSESSMENT AND PLAN: 1. Right upper lobe bronchopneumonia and still some atelectasis, but his air and gas exchange is improved. Continue bronchodilators. Continue present antibiotic. 2. Leukocytosis has resolved. 3. Atrial fibrillation. Rate is controlled. 4. History of seizures. He is on Keppra. 5. He has had a couple strokes and recently was at rehabilitation at [facility]. His wanted know if he could maybe go back to [facility] after this. We will continue physical therapy here. REVIEW OF HIS ORDERS: He is on Seroquel 100 mg at bedtime, which I started in this hospital, which seems to help him at nighttime. He is on Catapres 0.1 mg p.o. q. 6 hours p.r.n., vitamin D 3 2000 units daily, Lasix 40 mg a day, guaifenesin 100 mg p.o. q. 4 hours p.r.n., hydrocodone 5 mg one p.o. q. 4 hours p.r.n., Keppra 1000 mg p.o. b.i.d., normal saline at 75 mL an hour, prednisone 20 mg a day, Coumadin 2.5 mg q.p.m. He is on Zosyn 3.375 g q. 6 hours. His pro time was 26, so it looks good. REVIEW OF LABS: Review of the rest of his lab: Electrolytes from this morning: Sodium 145, potassium 4.5, chloride 107. BUN 13, creatinine 1.1. cc: Ham Isaac MD
[2019-09-27] MEDS: COUMADIN PO SCH (22:35)
[2019-09-27] MEDS: SEROQUEL PO SCH (22:36)
[2019-09-28] MEDS: DUONEB (A & A) INH SCH ×6 (03:10→23:27)
[2019-09-28] MEDS: ZOSYN 3.375 GM in NS 50 ML IV SCH ×4 (04:33→21:22)
[2019-09-28] MEDS: CATAPRES PO PRN ×2 (04:33→14:21)
[2019-09-28] MEDS: KEPPRA PO SCH ×2 (09:09→21:21)
[2019-09-28] MEDS: PREDNISONE PO SCH (09:09)
[2019-09-28] MEDS: KLOR-CON PO SCH ×2 (09:09→21:21)
[2019-09-28] MEDS: VITAMIN D PO SCH (09:10)
[2019-09-28] MEDS: LASIX PO SCH (09:10)
[2019-09-28] MEDS: NS 1,000 ML IV SCH (10:50)
--- NOTE | 2019-09-28 13:06 | PROGRESS NOTE ---
DATE: 09/28/2019 SUBJECTIVE: Mr. Herrera feels much better today. His was giving him a shave. He has been swallowing good, eating well. They would like to pursue whether they can go to rehab tomorrow. He has been sleeping good. OBJECTIVE: Vital Signs: He remains afebrile, temperature 98 degrees, pulse 78, respirations 24, blood pressure 137/85. HEENT: Pupils are equal and round. Lungs: Clear anterolateral and posterior. Cardiovascular: Regular rhythm and rate without murmur or S3. Abdomen: Soft. Skin: Warm and dry. Extremities: No pedal edema. Urine output is 3200 mL. IMAGING: Chest x-ray from 09/26/2019: Cardiomegaly with basilar atelectasis. I will repeat another x-ray in the morning. ASSESSMENT AND PLAN: 1. Right upper lobe bronchopneumonia. Still some atelectasis, but doing much better, feels better. Air and gas exchange is improved. Continue bronchodilators and present antibiotics. 2. Leukocytosis, resolved. 3. Atrial fibrillation. Rate is controlled. 4. History of seizures. He is on Keppra. 5. He has a history of strokes, and he was at rehab at [facility]. He would like to see if we can go back there. REVIEW OF ORDERS: Continue present orders, and will repeat another chest x-ray in the morning. Continue physical therapy and occupational therapy. LABORATORY DATA: Today, from 09/24/2019, white count has come down nicely. Electrolytes look good. cc: Ham Isaac MD
[2019-09-28] MEDS: IMODIUM PO PRN (13:09)
[2019-09-28] MEDS: SEROQUEL PO SCH (21:22)
[2019-09-29] MEDS ORDERED: HALDOL IM ONE (00:38)
[2019-09-29] MEDS: DUONEB (A & A) INH SCH ×5 (03:14→19:19)
[2019-09-29] MEDS: COUMADIN PO SCH ×2 (03:18→20:24)
[2019-09-29] MEDS: NS 1,000 ML IV SCH ×3 (03:56→16:35)
[2019-09-29] MEDS: ZOSYN 3.375 GM in NS 50 ML IV SCH ×4 (03:58→20:24)
--- NOTE | 2019-09-29 08:32 | Diag Imaging Result Doc PS360 ---
CHEST-PORTABLE - 09/29/2019 INDICATION: pneumonia, atelectasis COMPARISON: 09/26/2019 FINDINGS: Stable cardiomegaly. Stable hazy atelectasis in both lung bases. No new or focal infiltrates. There is pulmonary vascular congestion. No pneumothorax or pleural effusion. IMPRESSION: Cardiomegaly and pulmonary vascular congestion. Hazy atelectasis in both lung bases. No change from prior. Electronically signed by Loco Morales 09/29/2019 8:29 AM
[2019-09-29] MEDS: KEPPRA PO SCH ×2 (09:17→20:25)
[2019-09-29] MEDS: KLOR-CON PO SCH ×2 (09:17→20:24)
[2019-09-29] MEDS: LASIX PO SCH (09:17)
[2019-09-29] MEDS: PREDNISONE PO SCH (09:17)
[2019-09-29] MEDS: VITAMIN D PO SCH (09:17)
--- NOTE | 2019-09-29 13:37 | PROGRESS NOTE ---
DATE: 09/29/2019 SUBJECTIVE: He is awake and alert, and is comfortable. He has no complaints. Apparently, he will not be eligible to go back to [facility]. He will have to go home with home health so I think he has [facility]. We will see if we can get him set up to go pretty soon since he can't go to [facility]. He is still not walking. He has had several strokes, and would like to get as much physical therapy at home as we can. Continue his physical therapy while he is here. OBJECTIVE: Temperature is 98.6 degrees, pulse 82, respirations 24, and blood pressure 142/95.HEENT: Pupils are equal and round. Lungs: Clear in all lung matias. Cardiovascular: Regular rhythm and rate without murmur or S3. DIAGNOSTIC: Chest x-ray with cardiomegaly, pulmonary vascular congestion. Hazy atelectasis both lung bases. His breathing seems to be doing well though. ASSESSMENT AND PLAN: 1. Right upper lobe pneumonia. Bronchopneumonia. This appears to be resolved. He still has some atelectasis. Continue to work on his deep breathing. His air and gas exchange is improved. Continue bronchodilators. 2. Leukocytosis when he came in, this is resolved. 3. Atrial fibrillation, rate is controlled. 4. History of seizures, on Keppra. 5. He has a history of strokes, and has recently been at [facility]. Apparently, his eligibility days are over so we will have to pursue trying to go home, and continue physical therapy at home I believe with [facility]. MEDICATIONS: 1. Seroquel 100 mg at bedtime. 2. Catapres 0.1 mg p.o. q.6 hours p.r.n. 3. Vitamin D3 2000 units daily. 4. Lasix 40 mg a day. 5. Guaifenesin 100 mg q.4 hours p.r.n. 6. Keppra 1000 mg p.o. b.i.d. 7. Imodium 2 mg p.o. q.8 hours p.r.n. 8. Normal saline at 75 mL an hour. I will diminish this down. 9. Prednisone 20 mg a day 10. Potassium chloride 20 mEq b.i.d. 11. Coumadin 2.5 mg every evening. 12. Zosyn 3.375 g IV q.6 hours. DISPOSITION: I am in hopes that we can get him home maybe on Sunday. Continue his physical therapy and occupational therapy. LABORATORY DATA: White count has come down nicely. Chemistries look good. I will repeat a CBC and basic metabolic profile, and another chest x-ray in the morning. cc: Ham Isaac MD
[2019-09-29] MEDS ORDERED: CALMOSEPTINE OINTMENT TOP PRN (16:34)
[2019-09-29] MEDS: IMODIUM PO PRN (16:35)
[2019-09-29] MEDS: SEROQUEL PO SCH (20:25)
[2019-09-30] MEDS: DUONEB (A & A) INH SCH ×5 (01:24→15:17)
[2019-09-30] MEDS: ZOSYN 3.375 GM in NS 50 ML IV SCH ×4 (03:15→22:24)
[2019-09-30] MEDS: NS 1,000 ML IV SCH (06:02)
[2019-09-30 08:52] LABS: CALCIUM 8.7 mg/dL (8.8-10.2); CREATININE 1.2 mg/dL (0.7-1.2); MAGNESIUM 2.3 mg/dL (1.5-2.7); POTASSIUM 3.4 mmol/L (3.5-5.1)
--- NOTE | 2019-09-30 08:54 | Diag Imaging Result Doc PS360 ---
EXAM: CHEST-PORTABLE HISTORY: pneumonia TECHNIQUE: Single view COMPARISON: 09/29/2019 FINDINGS: The lungs are well expanded. The heart is mildly enlarged. The vessels are not distended. There are no infiltrates. No effusion identified. IMPRESSION: No pneumonia Electronically signed by [place] Peterson 09/30/2019 8:52 AM
[2019-09-30] MEDS: KEPPRA PO SCH ×2 (09:53→22:24)
[2019-09-30] MEDS: VITAMIN D PO SCH (09:53)
[2019-09-30] MEDS: PREDNISONE PO SCH (09:53)
[2019-09-30] MEDS: KLOR-CON PO SCH ×2 (09:53→22:24)
[2019-09-30] MEDS: LASIX PO SCH (09:53)
[2019-09-30 09:56] LABS: URINE SOURCE CATH
[2019-09-30 10:09] LABS: BILIRUBIN URINE NEGATIVE (NEGATIVE); BLOOD URINE NEGATIVE (NEGATIVE); COLOR YELLOW; GLUCOSE URINE NEGATIVE (NEGATIVE); KETONE URINE TRACE mg/dL (NEGATIVE); LEUKOCYTES URINE NEGATIVE (NEGATIVE); NITRITE URINE NEGATIVE (NEGATIVE); PROTEIN URINE NEGATIVE (NEGATIVE); SP GRAVITY URINE 1.025; TURBIDITY URINE CLEAR (CLEAR); UROBILINOGEN URINE NORMAL (NORMAL)
[2019-09-30 10:11] LABS: UR EPITHELIAL CELLS <10 /HPF (<10); URINE BACTERIA NEGATIVE /HPF; URINE RBC <10 /HPF (<10); URINE WBC <10 /HPF (<10)
--- NOTE | 2019-09-30 15:50 | PROGRESS NOTE ---
DATE: 09/30/2019 SUBJECTIVE: I have seen and examined Mr. Herrera today. Mr. Herrera refers to be feeling a lot better. No new complaints. He said his breathing has significantly improved. Early on this morning Mr. Herrera was not able to pass any urine. We bladder scanned him and he had about 700 in. They did an in-and-out catheterization. About 4 hours later another bladder scan showed that he had over 400 mL, so the put in a Carson catheter. OBJECTIVE: Vital signs: Blood pressure is 156/76, pulse of 90, respirations 20, temperature is 98.1 degrees. General: Mr. Herrera is a 79-year-old male. He is in bed, no distress. HEENT: Mucosa is pink and moist. Anicteric. Acyanotic. Neck: Supple. Chest: Good air entry bilaterally. There were no crepitations, no rhonchi. Cardiovascular: Regular rate and rhythm. There is about 3/6 AR murmur auscultated. Abdomen: Soft, nontender. Bowel sounds present. Extremities: No pedal edema. 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 : Patient has a Carson catheter in place. ASSESSMENT: 1. Altered mental status on presentation. Seems to be improved. 2. Right upper lobe bronchopneumonia, healthcare associated. Patient is on antimicrobial therapy. 3. History of atrial fibrillation. Currently rate controlled. 4. Remote history of seizure disorder. 5. History of prostate cancer. 6. Acute urinary retention. The patient had an in-and-out catheterization. Subsequent bladder scan continues to show obstruction. The patient has a history of prostate cancer status post prostatectomy. Carson catheter has been put in and we have advised that he follow up with Urology. We also started him on tamsulosin. 7. History of pulmonary embolus, noted. 8. Coumadin anticoagulation for atrial fibrillation and stroke prophylaxis, noted. cc: Miguel Angel Mak MD
[2019-09-30] MEDS ORDERED: FLOMAX PO SCH (21:00)
[2019-09-30] MEDS: COUMADIN PO SCH (22:24)
[2019-09-30] MEDS: SEROQUEL PO SCH (22:24)
[2019-10-01] MEDS: NS 1,000 ML IV SCH (02:44)
[2019-10-01] MEDS: ZOSYN 3.375 GM in NS 50 ML IV SCH ×3 (03:14→14:52)
[2019-10-01] MEDS: DUONEB (A & A) INH SCH ×4 (05:09→15:54)
[2019-10-01] MEDS: LASIX PO SCH (08:51)
[2019-10-01] MEDS: VITAMIN D PO SCH (08:51)
[2019-10-01] MEDS: KEPPRA PO SCH (08:51)
[2019-10-01] MEDS: PREDNISONE PO SCH (08:51)
[2019-10-01] MEDS: KLOR-CON PO SCH (08:51)
[2019-10-01 13:37] VITALS: BP 120/67
--- NOTE | 2019-10-02 10:15 | DISCHARGE SUMMARY ---
ADMISSION DATE: 09/22/2019 DISCHARGE DATE: 10/01/2019 DISPOSITION: Home with [facility]. FOLLOWUP: 1. Dr. Dumont 2. Dr. Klein. CONSULTATION DURING THIS ADMISSION: None. INVASIVE PROCEDURES DURING THIS ADMISSION: 1. A chest x-ray did show a right upper lobe infiltrate compatible with bronchopneumonia. Subsequent chest x-ray were done. A recent one done yesterday showed completely resolved, no pneumonia. 2. CT scan of the head shows showed no acute process. No visible change. ADMISSION DIAGNOSIS: 1. Right upper lobe pneumonia. 2. Leukocytosis. 3. Atrial fibrillation. 4. History of seizures. DIAGNOSIS AT THE TIME OF DISCHARGE: 1. Altered mental status on presentation resolved. 2. Right upper lobe bronchopneumonia, resolved. 3. Remote history of seizure disorder. 4. Acute urinary retention during the hospital course is the patient has a Carson catheter in place. 5. History of prostate cancer status post prostatectomy by Dr. Rocha in 2007. 6. History of multiple strokes. 7. History of extensive pulmonary emboli. The patient is on Coumadin anticoagulation. DISCHARGE MEDICATIONS: 1. Keppra 1000 b.i.d. 2. Dulcolax. 3. Vitamin D 3 2000 units p.o. daily. 4. Fluoxetine 10 mg p.o. daily. 5. Lasix 40 mg p.o. daily. 6. Gabapentin 300 b.i.d. 7. Coumadin 3.5 p.o. q. p.m. 8. Clonidine 0.1 p.o. q.6. 9. [place]. 10. Lorazepam 0.5 p.o. daily. 11. Prednisone 20 mg p.o. daily. 12. Quetiapine 100 mg p.o. at bedtime. 13. Tamsulosin 0.4 p.o. at bedtime. 14. Amoxiclav 1 tablet b.i.d. DATA: The patient's blood cultures urine cultures were negative. Influenza was negative. PRESENTING COMPLAINT: Altered mental status, low blood pressure. HISTORY OF PRESENTING COMPLAINT: Mr. Herrera is a 79-year-old male who was a resident of [facility] for rehab. He was brought to the emergency room because he was quite confused, associated with subjective fever and chills, cough. Upon presentation, the patient was found to have a temperature of actually 98.1, was saturating 98%. A chest x-ray did reveal a left right upper lobe infiltrate. He was admitted for bronchopneumonia. HOSPITAL COURSE: Mr. Herrera was started on broad-spectrum IV antibiotics, responded very well because was afebrile throughout the hospital course. Blood pressures got better. A repeat chest x-ray multiple times revealed that the pneumonia is cleared About 2 days prior to discharge Mr. Herrera developed acute urinary retention. He was in and out catheterization at one point, and they got more than 700 mils out. 4 hours later he still could not void, so a bladder scan did reveal more than 400 mL. He was catheterized. He is going to remain with a Carson catheter and follow up with Urology. Mr. Herrera has a history of prostate cancer that was removed by Dr. Rocha 2007 according to the family. We are not 100% sure what procedure that was done. Will however recommend that he follows up with Dr. Klein for regular urological care. This morning Mr. Patricia refers to be doing well. No new complaints. His vitals stable. Blood pressure is 120/67, pulse of 72, respiration 24, temperature 97.8 degrees. I have discussed all the discharge recommendations with him as well as with the . Both voiced understanding. TIME SPENT FOR DISCHARGE: 37 minutes. cc: MD DAVID Sparrow
== END 2019-10-01 17:24 | disposition hospice, home (50) | DRG 871 ==
LOC: SUPCPDRO → ED 05:26 → SUATTDRO 09:01 → EDIPHOLD 09:01 → 3N 13:17
PROVIDERS: ATTEND Internal Medicine